=== PATIENT | female | born 1970 | race Caucasian/White ===

== ENCOUNTER 2018-08-15 06:24 | Inpatient (IN) ==
--- NOTE | 2018-08-15 07:02 | History & Physical Report ---
Date of Encounter: 08/15/18 Time of Encounter: 07:01 24 Hour HP Update - Instructions Instructions: If the History and Physical is less than 30 days old and was completed prior to A.M. admission and or procedure and has NOT been updated on calendar day of procedure please complete this update prior to performing procedure. - Update Patient reports changes in Medical Condition: No Changes in examination, assessment, or condition: No Changes in Medication: No Preop tests/diagnostics Reviewed: Yes Surgery Remains Indicated: Yes Consent for Planned Operative Procedure(s) Verified: Yes - Pre-Operative Checklist Preoperative Checklist Indicated: Yes Prophylactic Antibiotic Ordered: Yes Home Medications Include Beta Lucille: Yes Beta Lucille Taken Today (Day of Surgery): Yes Beta Lucille Taken Yesterday (Day Prior to Surgery): Yes Is VTE Prophylaxis Indicated?: Yes
[2018-08-15] MEDS ORDERED: CeFAZolin Syr 2,000MG/20 ML 2,000 MG/20 ML SYRINGE IVPB ONE (07:04)
[2018-08-15] MEDS ORDERED: *HR* FentaNYL (PF) 100 MCG/2 ML VIAL ONE ×2 (07:08→08:57)
[2018-08-15] MEDS ORDERED: *HR* Midazolam HCl 2 MG/2 ML VIAL ONE (07:08)
[2018-08-15] MEDS ORDERED: *HR* Propofol 200 MG/20 ML VIAL IVP ONE (07:09)
[2018-08-15] MEDS ORDERED: *HR* Rocuronium Bromide 50 MG/5 ML VIAL ONE (07:09)
[2018-08-15] MEDS ORDERED: *HR* Succinylcholine 200 MG/10 ML VIAL IVP ONE (07:09)
[2018-08-15] MEDS ORDERED: Lidocaine -MPF 2% 2 ML VIAL ONE (07:09)
[2018-08-15] MEDS ORDERED: Ondansetron 4 MG/2 ML VIAL ONE (07:09)
[2018-08-15] MEDS ORDERED: Dexamethasone 4 MG/ML VIAL ONE (07:09)
[2018-08-15] MEDS ORDERED: Ringers Solution, Lactated 1,000 ML IVC SCH (07:15)
[2018-08-15] MEDS ORDERED: Lidocaine -MPF 4% 5 ML AMPUL ONE (07:19)
--- NOTE | 2018-08-15 07:22 | Anesthesia Evaluation PreOp ---
Date of Encounter: 08/15/18 Time of Encounter: 07:20 - Past History Planned Operation: Total Abdominal Hysterectomy Cardiac History: HTN, Hyperlipidemia, Other (Anemia) Pulmonary History: Denies Any Significant HX ACOUSTIC ENGINEER History: Other ( igraines) Other Medical History: Thyroid (Hypo), GERD, Other (IBS, DJD) Anesthesia History: Past Anesthesia (Foot, GB, R- Thumb), Problems : No Test: Negative (08/08/2018) Alcohol Use: none, occasionally Drug use: none Medications and Allergies Atenolol [Tenormin] 25 mg PO DAILY 10/27/16 [History] FLUoxetine HCl [Prozac] 20 mg PO DAILY 10/27/16 [History] Levothyroxine [Synthroid] [place] [address]/27/16 [History] Lisinopril [Zestril] 10 mg PO DAILY 10/27/16 [History] Simvastatin [Zocor] 20 mg PO HS 10/27/16 [History] Loestrin Fe 1-20 Tablet 08/25/17 [History] Chlorphen/Pseudoeph/Ibuprofen [Advil Allergy Sinus Caplet] 1 each PO DAILY 08/15/18 [History] Ibuprofen [Motrin] 200 mg PO TID 08/15/18 [History] Allergy/AdvReac Type Severity Reaction Status Date / Time No Known Allergies Allergy Verified 08/08/18 10:48 - Meds/Allergy Pre-op Review Medications Reviewed: Yes Allergies Reviewed: Yes Beta Blockers on Current Med List: Yes If Beta Blockers taken, Date/Time (Last Dose taken): 05:30 Today Anesthesia Results - Labs Laboratory Tests 02/27/18 08/08/18 08/08/18 08:28 10:50 10:50 WBC 9.0 Hgb 12.5 Hct 38.0 Plt Count 318 Sodium 136 Potassium 4.2 Chloride 102 Carbon Dioxide 24 BUN 10 Creatinine 0.69 Laboratory Tests 08/08/18 10:50 Serum , Qual Negative - Imaging EKG: report reviewed (SINUS RHYTHM LOW QRS VOLTAGE IN PRECORDIAL LEADS [QRS DEFLECTION < 1.0 mV IN CHEST LEADS] MODERATE VOLTAGE CRITERIA FOR LVH, CONSIDER NORMAL VARIANT [MEETS CRITERIA IN ONE OF: R(aVL), S(V1), R(V5), R(V5/V6)+S(V1)] Electronically Signed On 08-09-2018 16:44:19 EDT by Дмитрий Murray) Anesthesia Exam O2 Sat Height 1.63 m Height 1.63 m Weight 90.718 kg Weight 90.718 kg O2 Sat by Pulse Oximetry 97 Vital Signs Temp Pulse Resp BP Pulse Ox 98.8 F 80 18 136/85 97 08/15/18 07:01 08/15/18 07:01 08/15/18 07:01 08/15/18 07:01 08/15/18 07:01 NPO (# of Hours): > 8 hrs - HEENT Pupil (Motor): Pupils equal, EOMI Mallampati: III Teeth: Normal Oral Opening: Greater than 3 - ACOUSTIC ENGINEER LOC: Oriented ACOUSTIC ENGINEER Motor: Normal RUE, Normal LUE, Normal RLE, Normal LLE, Normal Face ACOUSTIC ENGINEER Sensory: Normal: RUE, LUE, RLE, LLE, Face - Cardiac Rhythm: Regular Murmur: None JVD: No Carotid Bruit: No - Pulmonary Breath Sounds: bilateral Clear Respiratory Effort: Symmetrical Anesthesia Assess/Plan ASA Score: 3 Anesthetic Plan: General, Spinal (Duramorph) Autologous Blood: Yes Monitoring Plan: Standard Monitors Recovery Plan: PACU
[2018-08-15] MEDS ORDERED: Morphine Sulfate/PF 5mg/10mL Vial ONE (07:30)
[2018-08-15] MEDS ORDERED: Ondansetron 4 MG/2 ML VIAL IVP ONE (07:42)
[2018-08-15] MEDS ORDERED: *HR* OxyCODONE Immed Rel 5 MG TABLET PO PRN (07:42)
[2018-08-15] MEDS ORDERED: *HR* Labetalol 20 MG/4 ML SYRINGE IVP PRN (07:42)
[2018-08-15] MEDS ORDERED: Albuterol 2.5 MG/3 ML NEBULIZER IH ONE (07:42)
[2018-08-15] MEDS ORDERED: *HR* Promethazine 25 MG/ML VIAL IVP PRN (07:42)
[2018-08-15] MEDS ORDERED: *HR* PHENYLEPHRINE 1,000 MCG/10 ML SYRINGE IVP ONE (08:19)
[2018-08-15] MEDS ORDERED: EPHEDrine 50 MG/ML VIAL ONE (08:32)
--- NOTE | 2018-08-15 08:48 | Anesthesia Procedures ---
Date of Encounter: 08/15/18 Time of Encounter: 07:55 Procedures: Anesthesia - Epidural/Spinal Patient ID/Chart reviewed: Yes Patient examined: Yes Consent Obtained: Yes Supplemental Oxygen: None/Room Air Sedation: Versed (mg): 2 Site Prep: Aseptic Technique, Sterile prep and drape, Povidone-Iodine 1% Patient position: upright Local Anesthetic: Lidocaine 1% Amount of Local Anesthetic used: 3 Interspace Used: L3-L4 Blood: No CSF: Yes (clear) Paresthesia: No Spinal Needle Gauge: 25 Spinal Dose: 0.5 ml bupivicaine 0.75% and duramorph 0.25 mg Procedure: patient placed sitting, time out performed, monitors on, patient positioned and back at L3/L4 level ptrepped with betadine and a sterile drape applied. 1% lidocaine skin injection 3 ml used, introducer placed, 25 G pencan needle used, csf encountered x 1 attempt, csf clear, no blood, no paraesthesia, 0.5 ml bupivicaine 0.75% and 0.25 mg duramorph injected. Patient tolerated well, vs stable throughout. Vitals + FHT's: see anesthesia record for vitals
[2018-08-15] MEDS ORDERED: Neostigmine Methylsulfate 3 MG/3 ML SYRINGE ONE (09:01)
[2018-08-15] MEDS ORDERED: *HR* HYDROMORPHONE 2 MG/ML VIAL ONE (10:24)
--- NOTE | 2018-08-15 11:14 | Operative Note ---
Date of procedure: 08/15/18 Pre-op diagnosis: pelvic pain, enlarged uterus, leiomyoma Post-op diagnosis: same Procedure: Total abdominal hysterectomy with bilateral salpingo-oophorectomy Complications: None Anesthesia: GETA, lorenza Surgeon: Gianna Stewart Co-Surgeon: Paloma Lam Was there an assistant reading teacher present: No Estimated blood loss (cc): 300 Specimen: Uterus, cervix, bilateral tubes and ovaries Disposition: PACU Procedure in Detail: Indications: This a 47-year-old female with a several year history of pelvic pain and known uterine fibroids. She had previously been on Lupron therapy for 3 months. Ultrasound noted an enlarged uterus with multiple fibroids, largest measuring 5.6 cm. Procedure: The patient was taken the operating room and a spinal analgesia was administered. She was then placed in supine position and a general anesthetic was administered. Skin was then prepped and draped in usual sterile fashion. A timeout procedure was performed. A Pfannenstiel incision was performed and carried down through the fascial layer into the abdominal cavity was entered. An O'Bal O'Mathur retractor was placed in the incision site and the bowel was gently packed in the upper abdomen with wet lap sponges. Uterus was cons istent with ultrasound findings, it was enlarged approximately 10-12 weeks in size with numerous fibroids. Visualization was very difficult and therefore the skin incisions was extended bilaterally. Dr. Lam started the procedure with the right side of the uterus. We identified the infundibulopelvic ligament and it was transected with the LigaSure device. This was then carried forward to the round ligament. A bladder flap was then created with sharp dissection. At this point I proceeded with the left side of the uterus in a similar fashion but because of the size of the uterus the left tube and ovary were left in place at the beginning and I therefore transected the utero-ovarian and round ligaments. I then continued to complete the bladder flap with sharp dissection. The bladder was then carefully dissected away with blunt and sharp dissection. I was able to ligate the uterine vessels with the LigaSure device and then had Dr. Lam performed the same function on her side. At this point was very difficult to get around the uterus due to enlarged size multiple fibroids. We therefore decided to proceed with various myomectomies in order to debulk the uterus. We each took turns removing various fibroids with this process taking approximately 30-45 minutes. Once this was accomplished were over 8 inch able to advance the pedicles on the respective sides clamping with straight Sole clamps and ligating with 0 Vicryl suture. Eventually we were able to reach the cervix. The vagina was then crossclamped and the entire specimen was removed. The vaginal cuff was then closed by Dr. Lam in a running locking fashion with 0 Vicryl suture. Good hemostasis was noted. The pelvic cavity was irrigated with sterile water and hemostasis was verified. We then went back and removed the left tube and ovary with the LigaSure device. We placed Desiree around the vaginal cuff. The retractor and the lap sponges were then removed. The fascial layer was closed with #1 stratafix suture in a running nonlocking fashion. Subcutaneous layer was then irrigated with sterile water. Subcutaneous Rodney layer was closed with 0 chromic suture in a running nonlocking fashion. 4-0 Vicryl then closed the superficial subcutaneous layer and continued to close the skin in a running subcuticular fashion. Dermabond mesh was then placed over the incision site. Patient followed procedure well, all sponge needle and counts reported as correct. Estimated blood loss was 300 mL. The urine was noted to be somewhat cloudy at the end of the procedure and this was felt to be due to pressure on the bladder from the various retractors, and it was noted to clear somewhat towards the end of the case. She was taken to the recovery room in stable condition.
[2018-08-15] MEDS: *HR* HYDROmorphone (PF) 1 MG/ML SYRINGE IVP PRN ×3 (11:35→12:00)
--- NOTE | 2018-08-15 12:21 | Anesthesia Evaluation Post Op ---
Date of Encounter: 08/15/18 Time of Encounter: 12:20 - Vital Signs Vital Signs: Vital Signs/O2 Sat/Glucose, Most Recent Temp Pulse Resp BP Pulse Ox 98.5 F 89 20 101/54 93 08/15/18 12:10 08/15/18 12:10 08/15/18 12:10 08/15/18 12:10 08/15/18 12:10 - Lungs Lungs: Clear Ascult./Percussion - Airway Airway: Non-obstructed - Cardiovascular Regular Rate - Mental Status Mental Status: Alert & Oriented, Answers Appropriately - Pain Pain Scale: 3 - Nausea Vomiting Nausea Vomiting: Not Present - Hydration Hydration: NPO - Discharge PostOp Status: Transfer Patient to floor
[2018-08-15] MEDS ORDERED: Naloxone 0.4 MG/ML INJ IVP PRN (12:28)
[2018-08-15] MEDS ORDERED: Ringers Solution, Lactated 1,000 ML ONE (16:15)
[2018-08-15] MEDS: *HR* OxyCODONE/APAP 5/325 TABLET PO PRN (19:56)
[2018-08-15] MEDS: Ondansetron 4 MG/2 ML VIAL IVP PRN (20:15)
[2018-08-15] MEDS: Ibuprofen 600 MG TABLET PO PRN (22:11)
[2018-08-16] MEDS ORDERED: *HR* Nalbuphine 10 MG/ML AMPUL IV PRN (00:11)
[2018-08-16] MEDS: *HR* OxyCODONE/APAP 5/325 TABLET PO PRN ×5 (00:17→20:29)
[2018-08-16 06:16] LABS: Basophils % 0.1 %; Eosinophils % 0.1 %; Hematocrit 30.3 % (35.3-44.9); Immature Granulocytes % 0.4 % (0-4); Lymphocytes # 2.6 K/mcL (0.6-4.6); Lymphocytes % 18.4 %; Mean Corpuscular Hemoglobin 31.7 pg (28.0-33.3); Mean Corpuscular Volume 96.2 fL (83.0-100.0); Mean Platelet Volume 10.6 fL (9.4-12.4); Monocytes % 7.1 %; Neutrophils # 10.2 K/mcL (1.6-8.9); Platelet Count 236 K/mcL (140-400); Red Blood Count 3.15 M/mcL (3.82-4.97); Red Cell Distribution Width 13.2 % (11.5-14.5); Segmented Neutrophils % 73.9 %
[2018-08-16] MEDS: Levothyroxine 25 MCG TABLET PO SCH (06:17)
[2018-08-16] MEDS: Ibuprofen 600 MG TABLET PO PRN ×2 (06:20→14:14)
[2018-08-16 06:33] LABS: eGFR For Non-African Americans > 60 (> 60)
[2018-08-16] MEDS ORDERED: Acetaminophen IV 1,000 MG/100 ML INFUS..BTL IVPB ONE ×2 (07:39→22:19)
[2018-08-16] MEDS: Ondansetron 4 MG/2 ML VIAL IVP PRN ×3 (08:10→22:51)
[2018-08-16] MEDS: FLUoxetine 20 MG CAPSULE PO SCH (09:23)
--- NOTE | 2018-08-16 11:52 | OB/GYN Progress Note ---
Date of Encounter: 08/16/18 Time of Encounter: 11:49 - Assessment and Plan (1) Pelvic pain Current Visit: Yes Status: Acute (2) Leiomyoma of body of uterus Current Visit: Yes Status: Acute (3) Enlarged uterus Current Visit: Yes Status: Acute (4) S/P hysterectomy with oophorectomy Current Visit: Yes Status: Acute Subjective - Subjective Patient reports: voiding normally, other (progressing slowly. C/O pain when getting up. No flatus) Objective - Vital Signs Latest vital signs: Vital Signs Temp Pulse Resp BP Pulse Ox 08/16/18 07:45 98.3 F 96 18 127/77 08/16/18 04:35 98.6 F 98 19 122/70 96 08/16/18 00:05 98.3 F 98 14 119/76 98 08/15/18 20:00 97.7 F 92 14 103/68 96 08/15/18 16:16 98.5 F 91 14 111/69 96 08/15/18 16:00 16 08/15/18 14:58 98.0 F 94 14 102/64 95 08/15/18 14:55 98.0 F 94 14 102/64 95 08/15/18 13:40 98.3 F 91 14 99/62 96 08/15/18 13:00 99.8 F H 90 14 93/60 94 08/15/18 12:30 99.2 F 95 14 93/53 93 08/15/18 12:20 98.5 F 96 17 93/59 94 08/15/18 12:10 98.5 F 89 20 101/54 93 08/15/18 12:00 95 20 113/48 94 08/15/18 11:50 89 24 105/59 95 Intake and Output 08/15/18 08/16/18 08/16/18 23:59 07:59 15:59 Intake Total 240 / 240 820 / 820 700 / 700 Output Total 350 / 350 1050 / 1050 Balance -110 / -110 -230 / -230 700 / 700 Intake: IV Fluids 100 / 100 Ofirmev 1,000 mg/100 ml 1,000 100 / 100 mg In 100 ml @ 400 mls/hr IVPB ONCE ONE Rx#:[id number] Oral 240 / 240 820 / 820 600 / 600 Output: Catheter 350 / 350 1050 / 1050 Other: Meal Breakfast Percent of Meal Consumed 50% - I&O's I&O's: Intake & Output 08/13/18 08/14/18 08/15/18 08/16/18 23:59 23:59 23:59 23:59 Intake Total 260 / 260 1520 / 1520 Output Total 800 / 800 1050 / 1050 Balance -540 / -540 470 / 470 Weight 90.718 kg - Exam Lungs: bilateral: normal Extremities: Present: normal. Absent: tenderness, edema Abdomen: Present: normal appearance, soft, other (few bowel sounds) Incision OB: Present: normal, dry, intact - Labs Labs: Abnormal lab results WBC 13.9 K/mcL (4.3-11.1) H 08/16/18 05:56 RBC 3.15 M/mcL (3.82-4.97) L 08/16/18 05:56 Hgb 10.0 g/dL (11.5-15.4) L 08/16/18 05:56 Hct 30.3 % (35.3-44.9) L 08/16/18 05:56 Neutrophils # 10.2 K/mcL (1.6-8.9) H 08/16/18 05:56 Consult Discharge Plan - Plan Additional Instructions: Monitor pain control. Advance diet when passing flatus. Pt. instructed on importance of incentive spirometry, ambulation, and EPCD's. Referrals: Gianna Stewart DO [Partnered Physician] -
[2018-08-16] MEDS: *HR* Promethazine 25 MG/ML VIAL IVP PRN (18:20)
[2018-08-16] MEDS ORDERED: Acetaminophen 325 MG TABLET PO ONE (21:49)
[2018-08-16] MEDS ORDERED: Ringers Solution, Lactated 1,000 ML IVC SCH (22:30)
--- NOTE | 2018-08-16 22:46 | Event Note ---
Date of Encounter: 08/16/18 Time of Encounter: 22:44 RN called pt with increased nausea and large emesis. Here to assess patient, hypoactive BS, abdomen slightly distended. Pt states has had a small amount of flatus this evening. Discussed with Dr. Macedo, NPO for now, LR @75, and xray.
[2018-08-17] MEDS: *HR* Promethazine 25 MG/ML VIAL IVP PRN ×3 (00:25→21:47)
--- NOTE | 2018-08-17 02:23 | Event Note ---
Date of Encounter: 08/17/18 Time of Encounter: 02:[address] Macedo. If further emesis will place NGT
[2018-08-17] MEDS ORDERED: *HR* HYDROmorphone (PF) 1 MG/ML SYRINGE IVP PRN (03:05)
[2018-08-17] MEDS: Ondansetron 4 MG/2 ML VIAL IVP PRN (05:25)
--- NOTE | 2018-08-17 10:32 | OB/GYN Progress Note ---
Date of Encounter: 08/17/18 Time of Encounter: 10:30 - Assessment and Plan (1) Pelvic pain Current Visit: Yes Status: Acute (2) Leiomyoma of body of uterus Current Visit: Yes Status: Acute (3) Enlarged uterus Current Visit: Yes Status: Acute (4) S/P hysterectomy with oophorectomy Current Visit: Yes Status: Acute (5) Postoperative ileus Current Visit: Yes Status: Acute Pt. advised of current situation. Reiterated previous discussion regarding the importance of ambulation and using EPCD's when in bed. Discussed ileus, treatment and potential complications, and risk of opiod narcotics. Will check labs, change pain management regimen. If symptoms worse, will obtain abdominal e-ray, consider general surgical consult. Subjective - Subjective Principal diagnosis: ileus Interval history: Pt. seen and examined. Chart reviewed. Pt. still c/o discomfort. C/O nausea, no further emesis. Voiding well. Pt. reluctant to ambulate. Denies flatus. Objective - Vital Signs Latest vital signs: Vital Signs Temp Pulse Resp BP Pulse Ox 08/17/18 09:06 98.4 F 106 18 157/93 08/17/18 04:00 99.1 F 88 20 144/86 93 08/17/18 00:20 97.8 F 92 18 147/96 96 08/16/18 20:20 98.4 F 92 16 138/82 96 08/16/18 15:33 97.8 F 87 16 152/87 08/16/18 12:05 98.4 F 95 14 135/80 95 Intake and Output 08/16/18 08/17/18 08/17/18 23:59 07:59 15:59 Intake Total 100 / 100 Output Total 500 / 500 700 / 700 Balance -400 / -400 -700 / -700 Intake: IV Fluids 100 / 100 Ofirmev 1,000 mg/100 ml 1,000 100 / 100 mg In 100 ml @ 400 mls/hr IVPB ONCE ONE Rx#:[id number] Output: Urine 500 / 500 700 / 700 Other: Weight 92.896 kg Patient Weight 08/17/18 23:59 Weight 92.896 kg - I&O's I&O's: Intake & Output 08/14/18 08/15/18 08/16/18 08/17/18 23:59 23:59 23:59 23:59 Intake Total 260 / 260 2420 / 2420 Output Total 800 / 800 1750 / 1750 700 / 700 Balance -540 / -540 670 / 670 -700 / -700 Weight 90.718 kg 92.896 kg - Exam Lungs: bilateral: normal Extremities: Present: normal. Absent: tenderness, edema Abdomen: Present: distention, other (sparse bowel sounds noted) Incision OB: Present: normal, dry, intact Comments: EPCD's not applied - Labs Labs: Abnormal lab results WBC 13.9 K/mcL (4.3-11.1) H 08/16/18 05:56 RBC 3.15 M/mcL (3.82-4.97) L 08/16/18 05:56 Hgb 10.0 g/dL (11.5-15.4) L 08/16/18 05:56 Hct 30.3 % (35.3-44.9) L 08/16/18 05:56 Neutrophils # 10.2 K/mcL (1.6-8.9) H 08/16/18 05:56 POC Glucose 121 mg/dL (70-99) H 08/17/18 08:06 Consult Discharge Plan - Plan Additional Instructions: 08/16/18 - Monitor pain control. Advance diet when passing flatus. Pt. instructed on importance of incentive spirometry, ambulation, and EPCD's. Referrals: Gianna Stewart DO [Partnered Physician] -
[2018-08-17] MEDS: D5% in Lactated Ringers 1,000 ML IVC SCH ×2 (11:03→19:11)
[2018-08-17] MEDS: Ketorolac 15 MG/ML VIAL IVP PRN (11:04)
[2018-08-17] MEDS: FLUoxetine 20 MG CAPSULE PO SCH (12:25)
[2018-08-17] MEDS: Levothyroxine 25 MCG TABLET PO SCH (12:26)
[2018-08-17] MEDS: Acetaminophen IV 1,000 MG/100 ML INFUS..BTL IVPB SCH ×3 (13:07→23:55)
[2018-08-17 13:28] LABS: Basophils % 0.1 %; Eosinophils % 0.3 %; Hematocrit 29.6 % (35.3-44.9); Immature Granulocytes % 0.7 % (0-4); Lymphocytes % 13.1 %; Mean Corpuscular HGB Conc 33.8 g/dL (31.6-35.5); Mean Corpuscular Hemoglobin 32.1 pg (28.0-33.3); Mean Corpuscular Volume 94.9 fL (83.0-100.0); Mean Platelet Volume 10.6 fL (9.4-12.4); Monocytes # 0.9 K/mcL (0.0-1.3); Monocytes % 5.7 %; Neutrophils # 12.2 K/mcL (1.6-8.9); Platelet Count 266 K/mcL (140-400); Red Blood Count 3.12 M/mcL (3.82-4.97); Red Cell Distribution Width 13.1 % (11.5-14.5); Segmented Neutrophils % 80.1 %
[2018-08-17 13:48] LABS: Alanine Aminotransferase 16 Units/L (7-52); Albumin 3.3 g/dL (3.5-5.7); Albumin/Globulin Ratio 1.3 (1.1-2.2); Alkaline Phosphatase 86 Units/L (34-104); Amylase 23 Units/L (29-103); Aspartate Amino Transferase 15 Units/L (13-39); BUN/Creatinine Ratio 10 (6-26); Bilirubin,Total 0.4 mg/dL (0.3-1.0); Blood Urea Nitrogen 6 mg/dL (6-20); Calcium 8.4 mg/dL (8.6-10.3); Carbon Dioxide 24 mEq/L (23-29); Chloride 101 mEq/L (98-107); Globulin 2.6 g/dL (2.4-3.5); Glucose 157 mg/dL (70-105); Lipase 26 Units/L (11-82); Magnesium 1.8 mg/dL (1.6-2.6); Osmolality,Calculated 281 (280-300); Potassium 3.3 mEq/L (3.5-5.1); Sodium 135 mEq/L (136-145); Total Protein 5.9 g/dL (6.4-8.9); eGFR For Non-African Americans > 60 (> 60)
[2018-08-17] MEDS: *HR* OxyCODONE Immed Rel 5 MG TABLET PO PRN (22:53)
[2018-08-18] MEDS: *HR* OxyCODONE Immed Rel 5 MG TABLET PO PRN ×3 (04:14→14:49)
[2018-08-18] MEDS: D5% in Lactated Ringers 1,000 ML IVC SCH (04:15)
[2018-08-18] MEDS: Levothyroxine 25 MCG TABLET PO SCH (05:59)
[2018-08-18] MEDS: Acetaminophen IV 1,000 MG/100 ML INFUS..BTL IVPB SCH ×3 (06:00→18:07)
--- NOTE | 2018-08-18 08:36 | OB/GYN Progress Note ---
Date of Encounter: 08/18/18 Time of Encounter: 08:36 - Assessment and Plan (1) Pelvic pain Current Visit: Yes Status: Acute (2) Leiomyoma of body of uterus Current Visit: Yes Status: Acute (3) Enlarged uterus Current Visit: Yes Status: Acute (4) S/P hysterectomy with oophorectomy Current Visit: Yes Status: Acute (5) Postoperative ileus Current Visit: Yes Status: Acute Pt. seen and examined. Labs reviewed. Will continue conserevatie care for now. Subjective - Subjective Interval history: Pt. still c/o discomfort, nausea. States discomfort in upper abdomen. Had loose bowel movement last p.m. Denies any further bowel movement, emesis, or flatus. Patient reports: voiding normally Objective - Vital Signs Latest vital signs: Vital Signs Temp Pulse Resp BP Pulse Ox 08/18/18 08:01 98.6 F 82 16 152/91 98 08/18/18 04:20 98.7 F 86 16 152/88 95 08/17/18 23:16 98.2 F 81 16 142/89 96 08/17/18 20:16 98.0 F 78 16 147/83 96 08/17/18 15:23 98.1 F 92 18 144/87 96 08/17/18 11:16 98.2 F 85 18 152/92 95 08/17/18 09:06 98.4 F 106 18 157/93 Intake and Output 08/17/18 08/18/18 08/18/18 23:59 07:59 15:59 Intake Total 1100 / 1100 100 / 100 Output Total 800 / 800 300 / 300 Balance 300 / 300 -200 / -200 Intake: IV Fluids 1100 / 1100 100 / 100 D5% & Lact. Ringers 1000 Ml Bag 1000 / 1000 1,000 ML @ 125 mls/hr IVC .Q8H DENG Rx#:[id number] Ofirmev 1,000 mg/100 ml 1,000 100 / 100 100 / 100 mg In 100 ml @ 400 mls/hr IVPB Q6HR DENG Rx#:[id number] Output: Urine 800 / 800 300 / 300 Other: Stool Size Large Stool Consistency liquid Stool Color Yellow # Bowel Movements 1 Weight 92.487 kg Patient Weight 08/18/18 23:59 Weight 92.487 kg - I&O's I&O's: Intake & Output 08/15/18 08/16/18 08/17/18 08/18/18 23:59 23:59 23:59 23:59 Intake Total 260 / 260 2420 / 2420 1320 / 1320 100 / 100 Output Total 800 / 800 1750 / 1750 2700 / 2700 300 / 300 Balance -540 / -540 670 / 670 -1380 / -1380 -200 / -200 Weight 90.718 kg 92.896 kg 92.487 kg - Exam Lungs: bilateral: normal Extremities: Present: normal. Absent: tenderness, edema Abdomen: Present: distention, other (sparse bowel sounds in LLQ) - Labs Labs: Abnormal lab results WBC 15.2 K/mcL (4.3-11.1) H 08/17/18 13:17 RBC 3.12 M/mcL (3.82-4.97) L 08/17/18 13:17 Hgb 10.0 g/dL (11.5-15.4) L 08/17/18 13:17 Hct 29.6 % (35.3-44.9) L 08/17/18 13:17 Neutrophils # 12.2 K/mcL (1.6-8.9) H 08/17/18 13:17 Sodium 135 mEq/L (136-145) L 08/17/18 13:17 Potassium 3.3 mEq/L (3.5-5.1) L 08/17/18 13:17 Glucose 157 mg/dL (70-105) H 08/17/18 13:17 POC Glucose 121 mg/dL (70-99) H 08/17/18 08:06 Calcium 8.4 mg/dL (8.6-10.3) L 08/17/18 13:17 Serum Total Protein 5.9 g/dL (6.4-8.9) L 08/17/18 13:17 Albumin 3.3 g/dL (3.5-5.7) L 08/17/18 13:17 Amylase 23 Units/L (29-103) L 08/17/18 13:17 Consult Discharge Plan - Plan Additional Instructions: 08/16/18 - Monitor pain control. Advance diet when passing flatus. Pt. instructed on importance of incentive spirometry, ambulation, and EPCD's. Referrals: Gianna Stewart DO [Partnered Physician] -
[2018-08-18] MEDS: Ondansetron 4 MG/2 ML VIAL IVP PRN (08:50)
[2018-08-18] MEDS: FLUoxetine 20 MG CAPSULE PO SCH (08:50)
[2018-08-18] MEDS: Potassium Chloride 20 MEQ in D5% in Lactated Ringers 1,000 ML IVC SCH ×2 (10:46→21:58)
[2018-08-18] MEDS: *HR* Promethazine 25 MG/ML VIAL IVP PRN (18:35)
[2018-08-19] MEDS: Acetaminophen IV 1,000 MG/100 ML INFUS..BTL IVPB SCH ×2 (00:24→06:05)
[2018-08-19] MEDS: Potassium Chloride 20 MEQ in D5% in Lactated Ringers 1,000 ML IVC SCH (06:04)
[2018-08-19] MEDS: Levothyroxine 25 MCG TABLET PO SCH (06:06)
[2018-08-19] MEDS: FLUoxetine 20 MG CAPSULE PO SCH (08:19)
[2018-08-19] MEDS: Ketorolac 15 MG/ML VIAL IVP PRN (08:29)
--- NOTE | 2018-08-19 11:29 | OB/GYN Progress Note ---
Date of Encounter: 08/19/18 Time of Encounter: 11:26 - Assessment and Plan (1) Pelvic pain Current Visit: Yes Status: Acute (2) Leiomyoma of body of uterus Current Visit: Yes Status: Acute (3) Enlarged uterus Current Visit: Yes Status: Acute (4) S/P hysterectomy with oophorectomy Current Visit: Yes Status: Acute (5) Postoperative ileus Current Visit: Yes Status: Acute Pt. seen and examined. Plan of care discussed. Will P-lock IV, slowly advance diet, will change pain medication.Anticipate discharge tomorrow. Subjective - Subjective Interval history: Feeling better but states not ready to go home quite yet. Having bowel movements, diarrhea, but patient states not unusual given her history of IBS. Reports + flatus. Appetite returning, would like to try some soft food. Objective - Vital Signs Latest vital signs: Vital Signs Temp Pulse Resp BP Pulse Ox 08/19/18 08:00 98.3 F 82 16 148/89 95 08/19/18 04:15 98.2 F 89 18 162/94 96 08/19/18 00:12 98.6 F 87 16 158/95 96 08/18/18 19:45 98.4 F 82 14 147/89 96 08/18/18 15:22 97.6 F 81 16 150/91 98 08/18/18 11:47 98.7 F 91 16 167/92 98 Intake and Output 08/18/18 08/19/18 08/19/18 23:59 07:59 15:59 Intake Total 1100 / 1100 1150 / 1150 Output Total 500 / 500 200 / 200 100 / 100 Balance 600 / 600 950 / 950 -100 / -100 Intake: IV Fluids 1100 / 1100 1150 / 1150 KCl 20 MEQ In D5% & Lact. 1000 / 1000 950 / 950 Ringers 1000 Ml Bag 1,000 ML @ 125 mls/hr IVC .Q8H5M DENG Rx#: [id number] Ofirmev 1,000 mg/100 ml 1,000 100 / 100 200 / 200 mg In 100 ml @ 400 mls/hr IVPB Q6HR DENG Rx#:[id number] Output: Urine 300 / 300 200 / 200 100 / 100 Stool 200 / 200 Other: Stool Size Small Moderate Stool Consistency liquid liquid Stool Color Brown # Voids 1 1 # Bowel Movements 1 Weight 93.485 kg Patient Weight 08/19/18 23:59 Weight 93.485 kg - I&O's I&O's: Intake & Output 08/16/18 08/17/18 08/18/18 08/19/18 23:59 23:59 23:59 23:59 Intake Total 2420 / 2420 1320 / 1320 1400 / 1400 1150 / 1150 Output Total 1750 / 1750 2700 / 2700 1150 / 1150 300 / 300 Balance 670 / 670 -1380 / -1380 250 / 250 850 / 850 Weight 92.896 kg 92.487 kg 93.485 kg - Exam Abdomen: Present: other (Bowel sounds present in all quadrants. Abdomen less distended.) Incision OB: Present: normal, dry, intact - Labs Labs: Abnormal lab results WBC 15.2 K/mcL (4.3-11.1) H 08/17/18 13:17 RBC 3.12 M/mcL (3.82-4.97) L 08/17/18 13:17 Hgb 10.0 g/dL (11.5-15.4) L 08/17/18 13:17 Hct 29.6 % (35.3-44.9) L 08/17/18 13:17 Neutrophils # 12.2 K/mcL (1.6-8.9) H 08/17/18 13:17 Sodium 135 mEq/L (136-145) L 08/17/18 13:17 Potassium 3.3 mEq/L (3.5-5.1) L 08/17/18 13:17 Glucose 157 mg/dL (70-105) H 08/17/18 13:17 POC Glucose 121 mg/dL (70-99) H 08/17/18 08:06 Calcium 8.4 mg/dL (8.6-10.3) L 08/17/18 13:17 Serum Total Protein 5.9 g/dL (6.4-8.9) L 08/17/18 13:17 Albumin 3.3 g/dL (3.5-5.7) L 08/17/18 13:17 Amylase 23 Units/L (29-103) L 08/17/18 13:17 Consult Discharge Plan - Plan Additional Instructions: 08/16/18 - Monitor pain control. Advance diet when passing flatus. Pt. instructed on importance of incentive spirometry, ambulation, and EPCD's. Referrals: Gianna Stewart DO [Partnered Physician] -
[2018-08-19] MEDS ORDERED: *HR* Acetaminophen w/Cod 300-30 mg 1 TAB TABLET PO PRN (11:31)
[2018-08-19] MEDS: Ondansetron 4 MG/2 ML VIAL IVP PRN (16:54)
[2018-08-19] MEDS ORDERED: Metoclopramide 10 MG/2 ML VIAL IVP ONE (17:08)
[2018-08-19] MEDS ORDERED: Simethicone 80 MG TAB.CHEW PO ONE (17:09)
[2018-08-19] MEDS ORDERED: Simethicone 80 MG TAB.CHEW PO PRN (20:19)
[2018-08-20] MEDS: Metoclopramide 10 MG/2 ML VIAL IVP SCH ×2 (00:30→06:30)
[2018-08-20] MEDS: Levothyroxine 25 MCG TABLET PO SCH (06:30)
--- NOTE | 2018-08-20 07:43 | Discharge Summary ---
Date of Encounter: 08/20/18 Time of Encounter: 07:43 - Discharge Diagnosis (1) Pelvic pain Priority: Secondary Status: Chronic (2) Leiomyoma of body of uterus Priority: Primary Status: Resolved (3) Enlarged uterus Priority: Secondary Status: Resolved (4) S/P hysterectomy with oophorectomy Priority: Secondary Status: Acute (5) Postoperative ileus Priority: Secondary Status: Resolved - Discharge Medications Prescriptions: New Acetaminophen w/Cod 300-30 mg [Tylenol w/Codeine #3] 1 tab PO Q6HR PRN 3 Days #10 tablet PRN Reason: Pain Continue Atenolol [Tenormin] 25 mg PO DAILY FLUoxetine HCl [Prozac] 20 mg PO DAILY Levothyroxine [Synthroid] 25 mcg PO 0630 Lisinopril [Zestril] 10 mg PO DAILY Simvastatin [Zocor] 40 mg PO HS Changed Ibuprofen [Motrin] 600 mg PO Q6HR PRN 10 Days #30 tablet PRN Reason: Pain Discontinued Loestrin Fe 1-20 Tablet Chlorphen/Pseudoeph/Ibuprofen [Advil Allergy Sinus Caplet] 1 each PO DAILY Home Medications: Atenolol [Tenormin] 25 mg PO DAILY 10/27/16 [History] FLUoxetine HCl [Prozac] 20 mg PO DAILY 10/27/16 [History] Levothyroxine [Synthroid] 25 mcg PO 0630 10/27/16 [History] Lisinopril [Zestril] 10 mg PO DAILY 10/27/16 [History] Simvastatin [Zocor] 40 mg PO HS 10/27/16 [History] Acetaminophen w/Cod 300-30 mg [Tylenol w/Codeine #3] 1 tab PO Q6HR PRN 3 Days #10 tablet 08/20/18 [Rx] Ibuprofen [Motrin] 600 mg PO Q6HR PRN 10 Days #30 tablet 08/20/18 [Rx] Allergies/Adverse Reactions: Allergy/AdvReac Type Severity Reaction Status Date / Time No Known Allergies Allergy Verified 08/08/18 10:48 Data Procedures and tests throughout hospitalization: Laboratory Tests 08/16/18 08/16/18 08/17/18 05:56 05:56 08:06 WBC 13.9 H RBC 3.15 L Hgb 10.0 L Hct 30.3 L MCV 96.2 MCH 31.7 MCHC 33.0 RDW 13.2 Plt Count 236 MPV 10.6 Immature Gran % 0.4 Seg Neutrophils % 73.9 Lymphocytes % 18.4 Monocytes % 7.1 Eosinophils % 0.1 Basophils % 0.1 Neutrophils # 10.2 H Lymphocytes # 2.6 Monocytes # 1.0 Eosinophils # 0.0 Basophils # 0.0 Sodium Potassium Chloride Carbon Dioxide BUN Creatinine 0.65 Est GFR ( Amer) > 60 Est GFR (Non-Af Amer) > 60 BUN/Creatinine Ratio Glucose POC Glucose 121 H Calculated Osmolality Calcium Magnesium Total Bilirubin AST ALT Alkaline Phosphatase Serum Total Protein Albumin Globulin Albumin/Globulin Ratio Amylase Lipase 08/17/18 08/17/18 13:17 13:17 WBC 15.2 H RBC 3.12 L Hgb 10.0 L Hct 29.6 L MCV 94.9 MCH 32.1 MCHC 33.8 RDW 13.1 Plt Count 266 MPV 10.6 Immature Gran % 0.7 Seg Neutrophils % 80.1 Lymphocytes % 13.1 Monocytes % 5.7 Eosinophils % 0.3 Basophils % 0.1 Neutrophils # 12.2 H Lymphocytes # 2.0 Monocytes # 0.9 Eosinophils # 0.0 Basophils # 0.0 Sodium 135 L Potassium 3.3 L Chloride 101 Carbon Dioxide 24 BUN 6 Creatinine 0.62 Est GFR ( Amer) > 60 Est GFR (Non-Af Amer) > 60 BUN/Creatinine Ratio 10 Glucose 157 H POC Glucose Calculated Osmolality 281 Calcium 8.4 L Magnesium 1.8 Total Bilirubin 0.4 AST 15 ALT 16 Alkaline Phosphatase 86 Serum Total Protein 5.9 L Albumin 3.3 L Globulin 2.6 Albumin/Globulin Ratio 1.3 Amylase 23 L Lipase 26 - Impressions ITS Impressions Chest/Abdomen X-ray 08/16/18 22:43 IMPRESSION: 1. Diffuse gaseous distension of the colon with scattered distended small-bowel loops. Radiographic findings are more suggestive of an ileus. 2. No radiographic evidence of free intraperitoneal gas. 3. Mild enlargement of the cardiopericardial silhouette, likely exaggerated on the basis of portable technique. D/ / Sebastian Buck / Sebastian Buck Interpreting Provider: Sebastian Buck Date of admission: 08/15/18 12:25 Primary care physician: Pratibha Vergara [employer] Discharging clinician: Gianna Stewart Anticipated date of discharge: 08/20/18 - Patient Status Disposition: Home, Self-Care Condition: Good Functional capacity at discharge: independent ambulation Overall status at discharge: patient is progressing back to baseline - Discharge Instructions Follow Up With: Gianna Stweart DO [Partnered Physician] - Additional Instructions: 08/16/18 - Monitor pain control. Advance diet when passing flatus. Pt. instructed on importance of incentive spirometry, ambulation, and EPCD's. - Diet and Activity Activity: increase activity as tolerated Diet: advance to your usual diet Hospital Course [employer] Reason for admission: pelvic pain, other (enlarged uterus, leiomyoma.) Post op complications: post op ileus Discharge diagnosis: pelvic pain Pertinent studies: CT scan Procedures: MARTHA-BSO Hospital course: Prlonged due to ileus and pain control Time Attestation: Total time spent providing and/or coordinating discharge services: Time Spent: Less than 30 minutes Specific discharge activities: No driving for two weeks. No intercourse for 4 weeks. Do not lift anything heavier than a gallon of milk for 4 weeks Exam - Constitutional Vitals: Temp Pulse Resp BP Pulse Ox 98.6 F 86 16 154/84 95 08/20/18 04:00 08/20/18 04:00 08/20/18 04:00 08/20/18 04:00 08/20/18 04:00 General appearance IM: A&O X 3, no acute distress - Respiratory Respiratory exam: Absent: respiratory distress - Cardiovascular Cardiovascular exam IM: Absent: irregular rhythm - GI/Abdominal GI/Abdominal exam IM: distended, normal bowel sounds, soft, no peritoneal signs Incision: normal, dry, intact - Rectal Rectal exam: deferred - Extremities Exam Extremities exam IM: Present: warm. Absent: calf tenderness, pedal edema - VTE Documentation of Mechanical Device: Intermittent pneumatic compression device
[2018-08-20] MEDS: FLUoxetine 20 MG CAPSULE PO SCH (07:47)
[2018-08-20 08:35] VITALS: BP 150/87
== END 2018-08-20 10:53 | disposition home or self-care (01) | DRG 742 ==
LOC: SAMDAY 06:24 → 1NENUOBS 12:25

== ENCOUNTER 2020-09-28 09:40 | Inpatient (IN) ==
[2020-09-28] MEDS ORDERED: 0.9 % Sodium Chloride 1,000 ML ONE (10:07)
[2020-09-28] MEDS: 0.9 % Sodium Chloride 1,000 ML IVC SCH ×2 (10:12→10:59)
[2020-09-28 10:20] LABS: Basophils % 0.3 %; Eosinophils # 0.5 K/mcL (0.0-0.6); Eosinophils % 4.7 %; Hematocrit 36.6 % (35.3-44.9); Hemoglobin 11.7 g/dL (11.5-15.4); Immature Granulocytes % 0.3 % (0-4); Lymphocytes # 3.1 K/mcL (0.6-4.6); Lymphocytes % 28.4 %; Mean Corpuscular Volume 93.8 fL (83.0-100.0); Mean Platelet Volume 10.8 fL (9.4-12.4); Monocytes # 0.8 K/mcL (0.0-1.3); Monocytes % 7.6 %; Neutrophils # 6.5 K/mcL (1.6-8.9); Platelet Count 223 K/mcL (140-400); Red Cell Distribution Width 12.6 % (11.5-14.5); Segmented Neutrophils % 58.7 %
[2020-09-28 10:43] LABS: Alanine Aminotransferase 14 Units/L (7-52); Albumin 4.1 g/dL (3.5-5.7); Albumin/Globulin Ratio 1.6 (1.1-2.2); Alkaline Phosphatase 93 Units/L (34-104); Aspartate Amino Transferase 13 Units/L (13-39); BUN/Creatinine Ratio 14 (6-26); Bilirubin,Indirect 0.3 mg/dL (0.0-1.0); Bilirubin,Total 0.3 mg/dL (0.3-1.0); Blood Urea Nitrogen 53 mg/dL (6-20); Calcium 9.6 mg/dL (8.6-10.3); Carbon Dioxide 27 mEq/L (23-29); Chloride 94 mEq/L (98-107); Globulin 2.5 g/dL (2.4-3.5); Glucose 122 mg/dL (70-105); Osmolality,Calculated 290 (280-300); Phosphorous 4.7 mg/dL (2.7-4.5); Potassium 3.1 mEq/L (3.5-5.1); Sodium 132 mEq/L (136-145); Total Protein 6.6 g/dL (6.4-8.9); Troponin I < 0.03 ng/mL (< 0.04); eGFR For African Americans 15 (> 60); eGFR For Non-African Americans 12 (> 60)
[2020-09-28 10:57] LABS: Thyroid Stimulating Hormone 4.095 mcIU/mL (0.340-5.600)
[2020-09-28] MEDS ORDERED: 0.9 % Sodium Chloride 1,000 ML IVC ONE (12:18)
[2020-09-28 12:52] LABS: Bacteria,Urine Few per hpf (None-Few); Bilirubin,Urine Negative (Negative); Blood,Urine Negative (Negative); Clarity,Urine Turbid (Clear); Color,Urine Yellow (Yellow); Glucose,Urine (UA) Normal (Normal); Hyaline Casts,Urine Many per lpf (None Seen); Ketones,Urine Negative (Negative); Leukocyte Esterase,Urine Small (Negative); Mucus,Urine Many per lpf (None-Few); Nitrite,Urine Negative (Negative); PH,Urine 5.5 pH Units (5.0-8.0); Protein,Urine 50 mg/dL (Neg-Trace); Specific Gravity,Urine 1.013 (1.010-1.025); Squamous Epithelial Cell,Urine Moderate per hpf (None-Few); Urobilinogen,Urine Normal (Normal)
[2020-09-28] MEDS ORDERED: Ringers Solution, Lactated 1,000 ML IVC ONE (14:22)
[2020-09-28] MEDS ORDERED: Ringers Solution, Lactated 1,000 ML ONE (15:07)
[2020-09-28] MEDS ORDERED: *HR* HYDROcodone/Acet 5/325 mg TABLET PO PRN (16:16)
[2020-09-28] MEDS ORDERED: Ondansetron 4 MG/2 ML VIAL IVP PRN (16:16)
[2020-09-28] MEDS ORDERED: Melatonin 3 MG TABLET PO PRN (16:16)
[2020-09-28] MEDS ORDERED: Naloxone 0.4 MG/ML INJ IVP PRN (16:16)
[2020-09-28] MEDS ORDERED: Acetaminophen 325 MG TABLET PO PRN (16:16)
[2020-09-28] MEDS: Ringers Solution, Lactated 1,000 ML IVC SCH (17:12)
[2020-09-28 18:07] LABS: Potassium 3.5 mEq/L (3.5-5.1)
[2020-09-28] MEDS: GuaiFENesin/Pseudophedrine TABLET PO PRN (21:14)
[2020-09-28] MEDS: cefTRIAXone 1,000 MG in 0.9 % Sodium Chloride Mini Bag 100 ML IVPB SCH (21:14)
[2020-09-28] MEDS: tiZANidine 4 MG TABLET PO PRN (22:05)
[2020-09-29 00:10] LABS: Protein/Creatinine Ratio,Urine 0.27 mg/mg (0.00-0.20)
[2020-09-29] MEDS: Ringers Solution, Lactated 1,000 ML IVC SCH ×3 (03:00→22:07)
[2020-09-29 04:21] LABS: Hematocrit 31.9 % (35.3-44.9); Hemoglobin 10.7 g/dL (11.5-15.4); Mean Corpuscular HGB Conc 33.5 g/dL (31.6-35.5); Mean Corpuscular Hemoglobin 30.4 pg (28.0-33.3); Mean Corpuscular Volume 90.6 fL (83.0-100.0); Mean Platelet Volume 10.8 fL (9.4-12.4); Platelet Count 188 K/mcL (140-400); Red Blood Count 3.52 M/mcL (3.82-4.97); Red Cell Distribution Width 12.4 % (11.5-14.5); White Blood Count 8.1 K/mcL (4.3-11.1)
[2020-09-29 04:26] LABS: Albumin 3.2 g/dL (3.5-5.7); Albumin/Globulin Ratio 1.5 (1.1-2.2); Bilirubin,Total 0.2 mg/dL (0.3-1.0); Calcium 8.3 mg/dL (8.6-10.3); Chol/HDL Ratio 8.7 (0-4.9); Globulin 2.1 g/dL (2.4-3.5); Magnesium 1.7 mg/dL (1.6-2.6); Phosphorous 4.7 mg/dL (2.7-4.5); Potassium 3.5 mEq/L (3.5-5.1); Total Protein 5.3 g/dL (6.4-8.9)
[2020-09-29 04:32] LABS: Prothrombin Time 11.3 Seconds (9.4-12.1)
[2020-09-29] MEDS ORDERED: *HR* Heparin 5,000 UNIT/ML VIAL SQ SCH (06:00)
[2020-09-29] MEDS: hydrOXYzine pamoate 25 MG CAPSULE PO SCH (07:52)
[2020-09-29] MEDS: Levothyroxine 25 MCG TABLET PO SCH (07:52)
[2020-09-29] MEDS: Renal Vitamin 1 CAP CAPSULE PO SCH (07:52)
[2020-09-29 14:02] LABS: Hematocrit 27.6 % (35.3-44.9)
[2020-09-29 14:03] LABS: Hemoglobin 8.8 g/dL (11.5-15.4)
[2020-09-29 17:23] LABS: Hematocrit 30.7 % (35.3-44.9)
[2020-09-29] MEDS: clonazePAM 1 MG TABLET PO PRN (17:28)
[2020-09-29] MEDS: cefTRIAXone 1,000 MG in 0.9 % Sodium Chloride Mini Bag 100 ML IVPB SCH (18:00)
[2020-09-29] MEDS: GuaiFENesin/Pseudophedrine TABLET PO PRN (18:49)
[2020-09-29] MEDS: tiZANidine 4 MG TABLET PO PRN (20:15)
[2020-09-30 01:10] LABS: Hemoglobin 9.8 g/dL (11.5-15.4); Mean Corpuscular HGB Conc 32.7 g/dL (31.6-35.5); Mean Corpuscular Hemoglobin 30.1 pg (28.0-33.3); Mean Platelet Volume 11.1 fL (9.4-12.4); Platelet Count 174 K/mcL (140-400); Red Blood Count 3.26 M/mcL (3.82-4.97); Red Cell Distribution Width 12.3 % (11.5-14.5); White Blood Count 6.3 K/mcL (4.3-11.1)
[2020-09-30 01:25] LABS: BUN/Creatinine Ratio 28 (6-26); Blood Urea Nitrogen 29 mg/dL (6-20); Calcium 8.6 mg/dL (8.6-10.3); Carbon Dioxide 28 mEq/L (23-29); Chloride 105 mEq/L (98-107); Glucose 99 mg/dL (70-105); Magnesium 1.5 mg/dL (1.6-2.6); Osmolality,Calculated 294 (280-300); Phosphorous 3.7 mg/dL (2.7-4.5); Potassium 4.2 mEq/L (3.5-5.1); Sodium 139 mEq/L (136-145); eGFR For African Americans > 60 (> 60); eGFR For Non-African Americans 55 (> 60)
[2020-09-30 01:47] LABS: % Iron Saturation 30 % (15-50); Ferritin 74 ng/mL (10-120); Iron 64 mcg/dL (50-170); Transferrin 151 mg/dL (203-362)
[2020-09-30 06:37] VITALS: BP 107/68
[2020-09-30] MEDS: Levothyroxine 25 MCG TABLET PO SCH (07:49)
[2020-09-30] MEDS: Renal Vitamin 1 CAP CAPSULE PO SCH (07:49)
[2020-09-30] MEDS: hydrOXYzine pamoate 25 MG CAPSULE PO SCH (07:49)
[2020-09-30] MEDS: clonazePAM 1 MG TABLET PO PRN (07:50)
[2020-09-30] MEDS ORDERED: Cholecalciferol (D-3) 1,000 UNIT (25MCG) TABLET PO SCH (09:00)
[2020-09-30] MEDS ORDERED: Magnesium Oxide 400 MG TABLET PO STA (10:06)
== END 2020-09-30 10:38 | disposition home or self-care (01) | DRG 682 ==
LOC: EMEROOARM 09:40 → 2NNU 16:47
PROVIDERS: ADMIT Internal Medicine; ATTEND Internal Medicine